=== PATIENT | male | born 1990 | race Caucasian/White ===

== ENCOUNTER 2022-11-19 17:59 | Emergency (ER) | payer MEDICAID ==
[~2022-11-19] VITALS: Ht 167.6 cm; Wt 65.3 kg
[2022-11-19 18:08] VITALS: BP_SYST 151; PULSE 82; RESP 18; TEMP 98.2; O2SAT 100
--- NOTE | 2022-11-19 18:10 | NUR ---
ER at bedside examining patient.
--- NOTE | 2022-11-19 18:24 | NUR ---
# 20 gauge angiocath placed to RIGHT AC. Use of asceptic technique. Opsite placed over site. Blood return noted. Blood for lab drawn from site. Flushed with 10 cc of normal saline. No evidence of infiltration noted. Patient tolerated well.
[2022-11-19] MEDS ORDERED: DEXTROSE 50% JECT 50 ML DISP.SYRIN ONE (18:27)
--- NOTE | 2022-11-19 18:34 | NUR ---
PT MEDICATED PER HYPOGLYCEMIA BLOOD SUGAR 50
[2022-11-19] MEDS ORDERED: DEXTROSE 50% JECT 50 ML DISP.SYRIN IVP ONE (18:45)
--- NOTE | 2022-11-19 19:05 | NUR ---
Urine specimen collected and analyzed in ER. Results given to ER .
--- NOTE | 2022-11-19 19:05 | NUR ---
PT BIB SELF FROM EMS MANAGER OFFICE WITH BLOOD SUGAR 50. PT IS AAOX3 VERBALIZES COMPLETE SENTENCES EYES ARE GERA WITH PINKNESS.
--- NOTE | 2022-11-19 19:28 | NUR ---
REPORT GIVEN TO ARIANA ROSS
[2022-11-19 20:21] LABS: BASOPHILS % (AUTO) 0.6 % (0.0-2.0); EOSINOPHILS # (AUTO) 0.1 K/uL (0.0-0.4); EOSINOPHILS % (AUTO) 1.6 % (0.0-4.0); HEMOGLOBIN 12.8 g/dL (14.0-18.0); LYMPHOCYTES % (AUTO) 29.5 % (20.5-51.5); MEAN CORPUSCULAR HEMOGLOBIN 27 pg (27-31); MEAN CORPUSCULAR HGB CONC 33 % (32-36); MEAN CORPUSCULAR VOLUME 81 fL (79.0-98.0); MONOCYTES # (AUTO) 0.6 K/uL (0.0-1.0); MONOCYTES % (AUTO) 9.6 % (1.7-9.3); NEUTROPHILS # (AUTO) 3.9 K/uL (1.8-7.7); NEUTROPHILS % (AUTO) 58.7 % (40.0-70.0); PLATELET COUNT (AUTO) 178 K/uL (130-430); RED CELL DISTRIBUTION WIDTH 15.1 % (9.0-15.0); WHITE BLOOD COUNT (AUTO) 6.7 K/uL (4.8-10.8)
--- NOTE | 2022-11-19 20:29 | NUR ---
LABS DRAWN AT BEDSIDE. 22G TO LH. PT TOLERATED WELL
[2022-11-19 20:33] LABS: CALCIUM 8.7 mg/dL (8.4-11.0); CREATININE 0.94 mg/dL (0.55-1.30)
[2022-11-19 20:36] LABS: ALBUMIN 3.8 g/dL (3.4-4.8); TOTAL BILIRUBIN 0.5 mg/dL (0.0-1.0)
[2022-11-19 22:30] VITALS: BP_SYST 108; PULSE 69; RESP 18; TEMP 98.1; O2SAT 100
--- NOTE | 2022-11-19 23:05 | NUR ---
Patient given written and verbal discharge instructions and verbalizes understanding. ER MD discussed with patient the results and treatment provided. Patient in stable condition. ID arm band removed. IV catheter removed intact and dressing applied, no active bleeding. Patient educated on HYPOGLYCEMIA and to follow up with PMD. Pain Scale . Opportunity for questions provided and answered. Medication side effect fact sheet provided.
== END 2022-11-19 22:30 | disposition home or self-care (01) ==
LOC: SED 17:59
DX: E11.649 Type 2 diabetes mellitus with hypoglycemia without coma (principal); Z79.899 Other long term (current) drug therapy
CPT/HCPCS: 36415; 80053; 85025; 96374; 99283